=== PATIENT | male | born 2000 | race Caucasian/White ===

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

== ENCOUNTER 2020-02-23 22:13 | Emergency (ER) | payer SELFPAY ==
[~2020-02-23] VITALS: Ht 180.3 cm; Wt 108.9 kg
[2020-02-23 22:14] VITALS: Ht 180.3 cm; Wt 108.9 kg
[2020-02-23 23:30] VITALS: BP 145/82
== END 2020-02-23 23:30 | disposition home or self-care (01) ==
LOC: ED 22:13
DX: R05 Cough (principal); R50.9 Fever, unspecified; J45.909 Unspecified asthma, uncomplicated; Z20.828 Contact with and (suspected) exposure to other viral communicable diseases
CPT/HCPCS: U0003-CS